=== PATIENT | male | born 1980 | race Caucasian/White ===

== ENCOUNTER 2018-08-21 18:58 | Emergency (ER) | payer SELFPAY ==
[2018-08-21] MEDS ORDERED: Acetaminophen/HYDROcodone 325-5 MG Tab PO ONE (18:59)
[2018-08-21] MEDS ORDERED: Ondansetron 8 MG Tab.DIS PO STA (19:13)
[2018-08-21] MEDS ORDERED: Alum Hydroxide/Mag Hydroxide 15 ML, Lidocaine 2% 15 ML PO STA ×2 (19:14)
--- NOTE | 2018-08-21 19:19 | EDM.PDOC ---
ED HPI GENERAL MEDICAL PROBLEM - General Stated Complaint: ULQ PAIN Time Seen by Provider: 08/21/18 18:58 Source of Information: Reports: Patient History Limitations: Reports: No Limitations - History of Present Illness INITIAL COMMENTS - FREE TEXT/NARRATIVE: 38 y.o.w.m with a H/O h Pylori, came to the ed due to epigastric pain and pain beneath his left anterior chest wall. Pain is worse with deep inspiration. Pain improves if he holds his breath. No f/c no N/V no dizziness, no trauma. Pt is extremely anxious. No F/C or any other acute medical issues. BP 145/96 RR 18 Pulse ox 98% on RA pulse 82 Temp 36.8 Onset Date: 08/20/18 Onset Time: 07:00 Duration: Hour(s):, Intermittent Location: Reports: Chest, Abdomen Quality: Reports: Ache, Burning, Dull, Pressure, Throbbing Severity: Mild Improves with: Reports: Rest Worsens with: Reports: Movement Context: Reports: Other Associated Symptoms: Reports: Other (anxiety) Upper Mid-Anterior Abdomen Pain Score (Numeric/FACES): 7 - Related Data Allergies Allergy/AdvReac Type Severity Reaction Status Date / Time metoclopramide HCl Allergy Irritabilit Verified 04/15/13 14:35 [From Reglan] y promethazine Allergy Irritabilit Verified 04/15/13 14:35 y Home Meds: Home Meds Albuterol [Ventolin HFA] 04/15/13 [History] Fluticasone/Salmeterol [Advair 500-50] 1 puff INH BID 04/15/13 [History] Montelukast [Singulair] 5 mg PO DAILY 04/15/13 [History] Hydrocodone/Acetaminophen [Dix 5-325 Tablet] 1 - 2 each PO Q6HR PRN #30 tablet 04/30/13 [Rx] ED ROS GENERAL - Review of Systems Review Of Systems: See Below Constitutional: Reports: No Symptoms HEENT: Reports: No Symptoms Respiratory: Reports: No Symptoms Cardiovascular: Reports: No Symptoms Endocrine: Reports: No Symptoms GI/Abdominal: Reports: Abdominal Pain : Reports: No Symptoms Musculoskeletal: Reports: No Symptoms Skin: Reports: No Symptoms Neurological: Reports: No Symptoms Psychiatric: Reports: No Symptoms Hematologic/Lymphatic: Reports: No Symptoms Immunologic: Reports: No Symptoms ED EXAM, GI/ABD - Physical Exam Exam: See Below Exam Limited By: No Limitations General Appearance: Alert, WD/WN, No Apparent Distress Eyes: Bilateral: Normal Appearance Ears: Normal External Exam, Normal Canal Nose: Normal Inspection, Normal Mucosa, No Blood Throat/Mouth: Normal Inspection, Normal Lips, Normal Teeth, Normal Gums, Normal Voice, No Airway Compromise Head: Atraumatic, Normocephalic Neck: Normal Inspection, Supple, Non-Tender, Full Range of Motion Respiratory/Chest: No Respiratory Distress, Lungs Clear, Normal Breath Sounds, Decreased Breath Sounds Cardiovascular: Normal Peripheral Pulses, Regular Rate, Rhythm, No JVD, No Murmur, No Rub GI/Abdominal Exam: Normal Bowel Sounds, Soft, No Organomegaly (Male) Exam: Deferred Rectal (Males) Exam: Deferred Back Exam: Normal Inspection, Full Range of Motion Extremities: Normal Inspection, Normal Range of Motion, Non-Tender, No Pedal Edema Neurological: Alert, Oriented, CN II-XII Intact, Normal Cognition, Normal Gait, No Motor/Sensory Deficits Psychiatric: Normal Affect, Anxious Skin Exam: Warm, Dry, Intact, Normal Color, No Rash Lymphatic: No Adenopathy Course - Vital Signs Text/Narrative:: 38 y.o.w.m with a H/O h Pylori, came to the ed due to epigastric pain and pain beneath his left anterior chest wall. Pain is worse with deep inspiration. Pain improves if he holds his breath. No f/c no N/V no dizziness, no trauma. Pt is extremely anxious. No F/C or any other acute medical issues. BP 145/96 RR 18 Pulse ox 98% on RA pulse 82 Temp 36.8 PE: WNWD anxious pt with epigastic and left any CW pain with deep inspiration Imaging: CT abd./pelvis Neg Labs: CBC/BMP neg Impression: Pleurisy Tx: Zofran GI cocktail did bot help the pain. Dix and Ativan Reaxm: Pain free on D/C Plan: D/C with instructions Last Recorded V/S: Last Vital Signs Temp 36.6 C 08/21/18 21:58 Pulse 94 08/21/18 21:58 Resp 17 08/21/18 21:58 BP 135/64 08/21/18 21:58 Pulse Ox 97 08/21/18 21:58 - Orders/Labs/Meds Orders: Active Orders 24 hr Category Date Time Status Abdomen Pelvis w wo Cont [CT] Stat Exams 08/21/18 20:34 Taken Labs: Laboratory Tests 08/21/18 08/21/18 08/21/18 Range/Units 19:55 19:55 19:55 WBC 8.2 (4.5-12.0) X10-3/uL RBC 5.23 (4.30-5.75) x10(6)uL Hgb 15.5 (11.5-15.5) g/dL Hct 46.4 (30.0-51.3) % MCV 88.7 (80-96) fL MCH 29.6 (27.7-33.6) pg MCHC 33.4 (32.2-35.4) g/dL RDW 12.4 (11.5-15.5) % Plt Count 289 (125-369) X10(3)uL MPV 8.0 (7.4-10.4) fL Neut % (Auto) 70.2 (46-82) % Lymph % (Auto) 19.6 (13-37) % [place] % (Auto) 6.3 (4-12) % Eos % (Auto) 3 (1.0-5.0) % Baso % (Auto) 1 (0-2) % Neut # (Auto) 5.8 (1.6-8.3) # Lymph # (Auto) 1.6 (0.6-5.0) # [place] # (Auto) 0.5 (0.0-1.3) # Eos # (Auto) 0.3 (0.0-0.8) # Baso # (Auto) 0.0 (0.0-0.2) # Sodium 143 (135-145) mmol/L Potassium 4.2 (3.5-5.3) mmol/L Chloride 105 (100-110) mmol/L Carbon Dioxide 30 (21-32) mmol/L BUN 18 (7-18) mg/dL Creatinine 1.3 (0.70-1.30) mg/dL Est Cr Clr Drug Dosing 82.39 mL/min Estimated GFR (MDRD) > 60 (>60) BUN/Creatinine Ratio 13.8 (9-20) Glucose 102 (80-116) mg/dL Calcium 9.2 (8.6-10.2) mg/dL Total Bilirubin 0.2 (0.1-1.3) mg/dL Direct Bilirubin 0.08 L (0.10-0.20) mg/dL AST 18 (5-25) IU/L ALT 46 H (12-36) U/L Alkaline Phosphatase 148 H (56-112) IU/L Creatine Kinase 191 H (60-160) IU/L Total Protein 7.7 (6.0-8.0) g/dL Albumin 3.8 (3.5-5.2) g/dL Amylase 60 (25-115) U/L Meds: Medications Discontinued Medications Generic Name Dose Route Start Last Admin Trade Name Freq PRN Reason Stop Dose Admin Al Hydroxide/Mg Hydroxide 15 0 ml 08/21/18 19:14 08/21/18 19:20 ml/ Lidocaine HCl 15 ml PO 08/21/18 19:15 30 ml ONETIME STA Administration Sodium Chloride 1,000 mls @ 999 mls/hr 08/21/18 19:45 08/21/18 19:58 Normal Saline IV 08/21/18 20:45 999 mls/hr .BOLUS ONE Administration Iopamidol 150 ml 08/21/18 20:50 08/21/18 21:09 Isovue-370 (76%) IV 08/21/18 20:51 108 ml ONETIME ONE Administration Lorazepam 1 mg 08/21/18 21:08 08/21/18 21:15 Ativan PO 08/21/18 21:09 1 mg ONETIME STA Administration Ondansetron HCl 8 mg 08/21/18 19:13 08/21/18 19:19 Zofran Odt PO 08/21/18 19:14 8 mg ONETIME STA Administration Pantoprazole Sodium 40 mg 08/21/18 19:45 08/21/18 20:01 Protonix Iv IVPUSH 08/21/18 19:46 40 mg ONETIME ONE Administration Departure - Departure Time of Disposition: 21:39 Disposition: Home, Self-Care 01 Condition: Good Clinical Impression: Pleurisy without effusion - Discharge Information Instructions: Abdominal Pain, Adult, [id number] Referrals: PCP,None [Primary Care Provider] - Forms: ED Department Discharge Additional Instructions: please take Motrin for mod pain, norco for severe pain, warm heat to the affected area, please f/u, come back to the ed if your symptoms get worse acutely. - My Orders Last 24 Hours: My Active Orders 08/21/18 20:34 Abdomen Pelvis w wo Cont [CT] Stat - Assessment/Plan Last 24 Hours: My Active Orders 08/21/18 20:34 Abdomen Pelvis w wo Cont [CT] Stat
[2018-08-21] MEDS ORDERED: Pantoprazole 40 MG Vial IVPUSH ONE (19:45)
[2018-08-21] MEDS ORDERED: Sodium Chloride 0.9% 1,000 ML IV ONE (19:45)
[2018-08-21] MEDS ORDERED: Iopamidol 755 MG/ML 150 ML Bottle IV ONE (20:50)
[2018-08-21] MEDS ORDERED: LORazepam 1 MG Tab PO STA (21:08)
[2018-08-21 21:59] VITALS: BP 135/64
== END 2018-08-21 21:45 | disposition home or self-care (01) ==
LOC: FB.ED 18:58
DX: R09.1 Pleurisy (principal); Z88.8 Allergy status to other drugs, medicaments and biological substances; Z79.899 Other long term (current) drug therapy
CPT/HCPCS: 36415; 74178; 80048; 80076; 82150; 82550; 85025; 96361; 96374; 99284; A9270; C9113; J7030; Q9967